=== PATIENT | female | born 1950 | race Caucasian/White ===

== ENCOUNTER 2016-06-11 02:19 | Inpatient (IN) | payer MEDICARE, OTHER ==
[~2016-06-11] VITALS: Ht 157.5 cm; Wt 81.4 kg
[2016-06-11] VITALS (9 sets, daily range): BP systolic 120–163; BP diastolic 50–69; PULSE 53–68; RESP 18–20; Ht 157.5 cm; Wt 81.4 kg
[~2016-06-11 02:19] MED LIST: AMLO-147 PO; ASPI-664 PO; BENA40TA54 PO; CILO100T PO; CLOP75TA27 PO; DOXA2TAB52 PO; FAMO20TA PO; GLIM4TAB PO; LOSA50TA6 PO; MAGNESIUM WITH ZINC PO; METF-382 PO; OMEGA Q PLUS PO; PROP40SO PO; TRAMADOL HCL PO
[2016-06-11] MEDS ORDERED: IPRATROPIUM (NEB) 0.5 MG/2.5 ML AMP INH STA (02:25)
[2016-06-11] MEDS ORDERED: ALBUTEROL 0.5% (NEB) 2.5 MG/0.5 ML AMP INH STA (02:25)
--- NOTE | 2016-06-11 02:42 | RADRPT ---
PROCEDURE: CHEST - 1 VIEW CLINICAL INDICATION: 66-year-old female with shortness of breath. TECHNIQUE: A single frontal AP semi-erect view of the chest was performed portably. The images we re reviewed on a PACS workstation. COMPARISON: Chest x-ray November 21, 2012. FINDINGS: The cardiomediastinal silhouette is mildly enlarged. The thoracic aortic arch is mildly calcified. There is [id number] pulmonary vascular congestion. There is a shallow inspiration. There is mild bibasilar subsegmental atelectasis. There is no evidence for focal consolidation. There is n o evidence for pneumothorax. Surgical clips are seen within the right axillary region. The osseous structures are intact. IMPRESSION: 1. Cardiomegaly. 2. Calcified thoracic aortic arch. 3. Pulmonary vascular congestion. 4. Shallow inspiration with mild bibasilar subsegmental atelectasis. 5. Surgical clips within the right axillary region presumably from lymph node dissection. .Mazin Hudson MD, MD Date Time Electronically viewed and signed by .Mazin Hudson MD, on 06/11/2016 02:42 .M/
[2016-06-11 03:05] LABS: ADD SCAN DIFF NO
[2016-06-11 03:18] LABS: ALBUMIN 4.3 g/dl (3.3-4.9)
[2016-06-11 03:19] LABS: CHLORIDE 102 mmol/L (97-110); POTASSIUM 4.8 mmol/L (3.5-5.1); SODIUM 141 mmol/L (135-144)
[2016-06-11 03:21] LABS: ALBUMIN/GLOBULIN RATIO 1.04; ANION GAP 19 (8-16); ASPARTATE AMINO TRANSFERASE 31 IU/L (15-46); BILIRUBIN,INDIRECT 0.1 mg/dl (0-1.1); BILIRUBIN,TOTAL 0.1 mg/dl (0.2-1.3); CARBON DIOXIDE 25 mmol/L (21-31); CREATININE 0.58 mg/dl (0.44-1.00); INR 1.02; PROTIME 13.4 Sec (12.2-14.2); TOTAL PROTEIN 8.4 g/dl (6.1-8.1)
[2016-06-11 03:22] LABS: ALANINE AMINOTRANSFERASE 30 IU/L (13-69); ALKALINE PHOSPHATASE 98 IU/L (42-121); BLOOD UREA NITROGEN 19 mg/dl (7-20); CALCIUM 10.7 mg/dl (8.4-10.2); GLUCOSE 177 mg/dl (70-220); PARTIAL THROMBOPLASTIN TIME 36.8 Sec (25.0-35.0)
[2016-06-11 03:25] LABS: BASOPHILS % 0.3 % (0.0-2.0); EOSINOPHILS # 0.2 10^3/ul (0.0-0.5); EOSINOPHILS % 1.7 % (0.0-7.0); HEMATOCRIT 29.7 % (37.0-47.0); HEMOGLOBIN 9.3 g/dl (12.0-16.0); LYMPHOCYTES # 1.4 10^3/ul (0.8-2.9); LYMPHOCYTES % 14.5 % (15.0-51.0); MEAN CORPUSCULAR HEMOGLOBIN 25.8 pg (29.0-33.0); MEAN CORPUSCULAR HGB CONC 31.3 g/dl (32.0-37.0); MEAN CORPUSCULAR VOLUME 82.5 fl (82.0-101.0); MEAN PLATELET VOLUME 10.7 fl (7.4-10.4); MONOCYTE # 0.8 10^3/ul (0.3-0.9); MONOCYTES % 8.4 % (0.0-11.0); NEUTROPHIL # 7.2 10^3/ul (1.6-7.5); NEUTROPHILS % 74.7 % (39.0-77.0); PLATELET COUNT 295 10^3/UL (140-415); RED CELL DISTRIBUTION WIDTH 17.7 % (11.5-14.5); WHITE BLOOD COUNT 9.6 10^3/ul (4.8-10.8)
[2016-06-11 03:29] LABS: B-TYPE NATRIURETIC PEPTIDE 421 PG/ML (0-125)
[2016-06-11] MEDS ORDERED: FUROSEMIDE 40 MG INJ IV ONE (03:30)
[2016-06-11 03:44] LABS: TROPONIN-I < 0.012 ng/ml (0.00-0.12)
--- NOTE | 2016-06-11 03:59 | ERA ---
ER Documentation Chief Complaint Date/Time DATE: 06/11/16 TIME: 03:57 Chief Complaint CP, SOB X 1 HR. HPI This is a 58-year-old female, with chest pain shortness of breath for the past hour. Chest pain is mild to moderate intensity, pressure-like with no exacerbating or remitting factors. Denies any fevers or chills. Denies any nausea vomiting. Shortness breath is progressively worse over the past 2 days. ROS All systems reviewed and are negative except as per history of present illness. Medications Home Meds Reported Medications [Magnesium With Zinc] No Conflict Check, PO INSTRUCTIONS UNKNOWN. 11/21/12 [[place] Q Plus] No Conflict Check, PO INSTRUCTIONS UNKNOWN. 11/21/12 Cilostazol* (Cilostazol*) 100 Mg Tablet, 100 MG PO BID 11/21/12 Famotidine* (Acid Control*) 20 Mg Tablet, 20 MG PO DAILY 11/21/12 Doxazosin* (CARDURA*) 2 Mg Tablet, 2 MG PO DAILY 11/21/12 Glimepiride* (Glimepiride*) 4 Mg Tablet, 4 MG PO BID 11/21/12 Benazepril Hcl* (Lotensin*) 40 Mg Tablet, 40 MG PO BID 11/21/12 Amlodipine Besylate* (Amlodipine Besylate*) 10 Mg Tablet, 10 MG PO DAILY 11/21/12 Losartan Potassium* (Losartan Potassium*) 50 Mg Tablet, 50 MG PO BID 11/21/12 Propranolol Hcl (Propranolol Hcl) 40 Mg/5 Ml Solution, 40 MG PO BID TAKE 80MG PO BID. 11/21/12 [Tramadol Hcl] No Conflict Check, 50 MG PO BID 11/21/12 Metformin Hcl* (Metformin Hcl*) 500 Mg Tablet, 500 MG PO DAILY 11/21/12 Aspirin* (Aspirin* EC) 81 Mg Tablet.dr, 81 MG PO DAILY 11/21/12 Clopidogrel Bisulfate (Clopidogrel) 75 Mg Tablet, 75 MG PO DAILY 11/21/12 Allergies Allergies: Coded Allergies: No Known Drug Allergies (Verified Allergy, Mild, 07/12/10) PMhx/Soc History of Surgery: Yes (STENTS 2008) Anesthesia Reaction: No Hx Neurological Disorder: No Hx Respiratory Disorders: No Hx Cardiac Disorders: Yes (CAD, HTN, STENTS PLACED) Hx Psychiatric Problems: No Hx Miscellaneous Medical Probl: No Hx Alcohol Use: No Hx Substance Use: No Hx Tobacco Use: No Smoking Status: Never smoker Physical Exam Vitals Vital Signs Date Time Temp Pulse Resp B/P Pulse Ox O2 Delivery O2 Flow Rate FiO2 06/11/16 03:41 79 19 171/66 93 Room Air 06/11/16 02:36 Nasal Cannula 2 06/11/16 02:20 97.2 79 18 184/78 90 Physical Exam Const: [] Head: Atraumatic Eyes: Normal Conjunctiva ENT: Normal External Ears, Nose and Mouth. Neck: Full range of motion..~ No meningismus. Resp: Clear to auscultation bilaterally Cardio: Regular rate and rhythm, no murmurs Abd: Soft, non tender, non distended. Normal bowel sounds Skin: No petechiae or rashes Back: No midline or flank tenderness Ext: No cyanosis, or edema Neur: Awake and alert Psych: Normal Mood and Affect Result Diagram: 06/11/16 0245 06/11/16 0245 Results 24 hrs Laboratory Tests Test 06/11/16 02:45 Activated Partial Thromboplast Time 36.8Sec Alanine Aminotransferase (ALT/SGPT) 30IU/L Albumin 4.3g/dl Albumin/Globulin Ratio 1.04 Alkaline Phosphatase 98IU/L Anion Gap 19 Aspartate Amino Transf (AST/SGOT) 31IU/L B-Type Natriuretic Peptide 421PG/ML Basophils # 0.010^3/ul Basophils % 0.3% Blood Urea Nitrogen 19mg/dl Calcium Level 10.7mg/dl Carbon Dioxide Level 25mmol/L Chloride Level 102mmol/L Creatinine 0.58mg/dl Direct Bilirubin 0.00mg/dl Eosinophils # 0.210^3/ul Eosinophils % 1.7% Globulin 4.10g/dl Glucose Level 177mg/dl Hematocrit 29.7% Hemoglobin 9.3g/dl INR International Normalized Ratio 1.02 Indirect Bilirubin 0.1mg/dl Lymphocytes # 1.410^3/ul Lymphocytes % 14.5% Mean Corpuscular Hemoglobin 25.8pg Mean Corpuscular Hemoglobin Concent 31.3g/dl Mean Corpuscular Volume 82.5fl Mean Platelet Volume 10.7fl Monocytes # 0.810^3/ul Monocytes % 8.4% Neutrophils # 7.210^3/ul Neutrophils % 74.7% Nucleated Red Blood Cells # 0.010^3/ul Nucleated Red Blood Cells % 0.0/100WBC Platelet Count 83648^3/UL Potassium Level 4.8mmol/L Prothrombin Time 13.4Sec Prothrombin Time Ratio 1.0 Red Blood Count 3.6010^6/ul Red Cell Distribution Width 17.7% Sodium Level 141mmol/L Total Bilirubin 0.1mg/dl Total Protein 8.4g/dl Troponin I < 0.012ng/ml White Blood Count 9.610^3/ul Current Medications Medications (Trade) Dose Ordered Sig/Heather Route PRN Reason Start Time Stop Time Status Last Admin Dose Admin Albuterol (Proventil 0.5% (Neb)) 5 mg ONCE STAT INH 06/11/16 02:25 06/11/16 02:27 DC Ipratropium [place] (Atrovent 0.02% (Neb)) 0.5 mg ONCE STAT INH 06/11/16 02:25 06/11/16 02:27 DC Furosemide (Lasix) 40 mg ONCE ONCE IV 06/11/16 03:30 06/11/16 03:31 DC Procedures/MDM EKG: Rate/Rhythm: [Normal Sinus Rhythm] QRS, ST, T-waves: [No changes consistent w/ acute ischemia] Impression: [No evidence of ischemia or arrhythmia] Chest X-ray 1V Interpreted by me: Soft Tissue: No acute abnormalities Bones: No acute abnormalities Mediastinum/Cardiac Silhouette/Lungs: Increased interstitial fluid markings. Impression: CHF Patient's heart failure symptoms is concerning for acute decompensation and will require inpatient workup and monitoring. Further w/u for ischemia, arrhythmia, PE or dissection will be deferred to the inpatient team. Accepting Care Team: Current data and ongoing care discussed. Time: 4 AM Primary Provider: Gwen Consulting: [XOXOXO] Outstanding Data: none Departure Diagnosis: Primary Impression: Chest pain Qualified Code: I20.9 - Ischemic chest pain Additional Impression: CHF (congestive heart failure) Qualified Code: I50.9 - Congestive heart failure, unspecified congestive heart failure chronicity, unspecified congestive heart failure type Condition: Serious WES [place] Jun 11, 2016 03:58
[2016-06-11 08:59] LABS: ALBUMIN 3.9 g/dl (3.3-4.9); POTASSIUM 4.1 mmol/L (3.5-5.1)
[2016-06-11] MEDS ORDERED: GLUCOSE GEL 15 GRAM TUBE PO PRN ×2 (09:00)
[2016-06-11] MEDS ORDERED: CLOPIDOGREL 75 MG TAB PO SCH (09:00)
[2016-06-11] MEDS ORDERED: DOXAZOSIN 2 MG TAB PO SCH (09:00)
[2016-06-11] MEDS ORDERED: FAMOTIDINE 20 MG TAB PO SCH (09:00)
[2016-06-11] MEDS ORDERED: GLUCOSE GEL 15 GRAM TUBE BUCCAL PRN (09:00)
[2016-06-11] MEDS ORDERED: LOSARTAN 50 MG TAB PO SCH (09:00)
[2016-06-11] MEDS ORDERED: GLUCAGON 1 MG INJ IM PRN (09:00)
[2016-06-11] MEDS ORDERED: PROPRANOLOL HCL 40 MG PO SCH (09:00)
[2016-06-11] MEDS ORDERED: DEXTROSE 50% 50 ML SYRINGE IV PRN ×2 (09:00)
[2016-06-11 09:02] LABS: ALBUMIN/GLOBULIN RATIO 1.02; BILIRUBIN,INDIRECT 0.1 mg/dl (0-1.1); BILIRUBIN,TOTAL 0.1 mg/dl (0.2-1.3); CALCIUM 10.1 mg/dl (8.4-10.2); CREATININE 0.6 mg/dl (0.44-1.00); TOTAL PROTEIN 7.7 g/dl (6.1-8.1)
[2016-06-11] MEDS: ASPIRIN (EC) 81 MG TAB PO SCH (09:15)
[2016-06-11] MEDS: AMLODIPINE 10 MG TAB PO SCH (09:16)
[2016-06-11] MEDS: BENAZEPRIL 40 MG TAB PO SCH ×2 (10:16→20:44)
[2016-06-11] MEDS: INSULIN ASPART [NOVOLOG] 3 ML PEN SC SCH ×3 (10:17→20:45)
[2016-06-11] MEDS: PROPRANOLOL 40 MG TAB PO SCH ×2 (10:18→20:43)
[2016-06-11] MEDS ORDERED: OMEP40CA6 PO (10:43)
[2016-06-11] MEDS ORDERED: APR50 PO (10:43)
[2016-06-11] MEDS ORDERED: REPA2TAB8 PO (10:43)
[2016-06-11] MEDS ORDERED: EXEM25TA PO (10:43)
[2016-06-11] MEDS: FUROSEMIDE 40 MG INJ IV SCH (17:42)
--- NOTE | 2016-06-11 19:33 | HP ---
DATE OF ADMISSION: 06/11/2016 CHIEF COMPLAINT: Shortness of breath and chest tightness for 3 days. HISTORY OF PRESENT ILLNESS: The patient is a 66-year-old female with history of coronary artery dis ease, diabetes, hypertension, diastolic congestive heart failure who has had some episodic edema per iodically the last few weeks, some dyspnea on exertion, especially walking any distance, is worse th e last few days with some occasional chest tightness, brief in duration. Shortness of breath was wo rse lying down. The patient denies any radiation of her chest pain, dizziness. She has had some mi ld cough which is nonproductive. No fever, chills or night sweats. Weight has been stable. Denies any acute dietary changes. Was brought into the ER overnight, diagnosed with CHF and admitted for further management. PAST MEDICAL HISTORY: Coronary artery disease, diastolic congestive heart failure, diabetes, hypert ension, hyperlipidemia, anemia, breast cancer. OPERATIONS: Right breast, , cataracts, varicose veins, toe, tonsils, right knee, PTCA with stent. MEDICATIONS: 1. Lantus 26 units q.a.m., 23 units q.p.m. 2. Hydralazine 25 mg 1-1/2 tablets b.i.d. 3. Aspirin 81 mg daily. 4. Benazepril 40 mg b.i.d. 5. Repaglinide 2 mg q.a.c. 6. Propranolol 80 mg p.o. b.i.d. 7. Norvasc 10 mg daily. 8. Exemestane 25 mg daily. ALLERGIES: STATINS. SOCIAL HISTORY: The patient denies any tobacco or alcohol use. She is a retired [employer] secretary. She is . FAMILY HISTORY: Father in his 90s from pneumonia. Mother at 49 from pneumonia. Four son s, one with diabetes. Daughter who is alive and well. REVIEW OF SYSTEMS: GENERAL: The patient denies any fever, chills, night sweats or other general complaints. HEENT: The patient denies any headache, congestion, rhinorrhea, sore throat or other HEENT complain ts. RESPIRATORY: As noted in HPI. CARDIOVASCULAR: As noted in HPI. GASTROINTESTINAL: The patient denies any abdominal pain, nausea, vomiting, bright red blood per rec alea, melena or other GI symptoms. GENITOURINARY: The patient denies any dysuria, frequency, other symptoms. NEUROLOGIC: She denies any numbness, tingling, weakness, other focal neurologic symptoms. PHYSICAL EXAMINATION: VITAL SIGNS: Temperature 99, pulse 56, blood pressure 144/50, respirations 20, pulse oximetry 96%. GENERAL APPEARANCE: This is a well-developed, well-nourished female in no acute distress. She appe ars nontoxic. HEENT: Normocephalic, atraumatic. Sclerae anicteric. Oropharynx is clear. NECK: Supple. No adenopathy. No elevated JVP, although hepatojugular reflux is present. No bruit s. LUNGS: There are bibasilar crackles. CARDIAC: Regular rate and rhythm. ABDOMEN: Bowel sounds are present. Abdomen soft, nontender, nondistended. EXTREMITIES: Without cyanosis or clubbing. There is mild edema bilaterally. NEUROLOGIC: The patient is alert and oriented x3 with no focal neurologic findings. DATA: EKG shows sinus rhythm at 81 with no hyperacute changes. Chest x-ray: Cardiomegaly, pulmonary vascular congestion. White count 9.6, hemoglobin 9.3, platelets 295. Sodium 141, potassium 4.8, chloride 102, bicarbonat e 25, BUN 19, creatinine 0.58, glucose 177, calcium 10.7, AST 31, ALT 30, alkaline phosphatase 98. Troponin less than 0.012. BNP 421. INR 1.02, PTT 36.8. IMPRESSION: 1. Acute exacerbation of congestive heart failure. 2. Diabetes. 3. Coronary artery disease. 4. Chest pain. Initial troponin negative. 5. Anemia. PLAN: Admit to telemetry. Cardiology consultation. Diuresis with careful monitoring of I's and O' s, daily weight. Monitor electrolytes. Anemia workup. Check a hemoglobin A1c. Resume outpatient medications except hold oral hypoglycemics. Sliding scale of NovoLog, mild algorithm in addition to Lantus. Dictated By: NEGAR WHEATLEY/ABNER Conf#: [id number] DID#: [id number]
[2016-06-11] MEDS: INSULIN GLARGINE [LANtus] 3 ML PEN SC SCH (20:47)
[2016-06-12] VITALS (13 sets, daily range): BP systolic 118–192; BP diastolic 64–79; PULSE 58–70; RESP 16–20
[2016-06-12] MEDS: ACCUCHECK XX SCH (02:00)
[2016-06-12] MEDS: FUROSEMIDE 40 MG INJ IV SCH ×2 (05:33→17:15)
[2016-06-12] MEDS: INSULIN GLARGINE [LANtus] 3 ML PEN SC SCH ×2 (07:47→20:22)
[2016-06-12] MEDS: INSULIN ASPART [NOVOLOG] 3 ML PEN SC SCH ×4 (07:47→20:24)
[2016-06-12 08:10] LABS: ADD SCAN DIFF NO
[2016-06-12 08:12] LABS: BASOPHILS % 0.2 % (0.0-2.0); EOSINOPHILS # 0.2 10^3/ul (0.0-0.5); EOSINOPHILS % 2.4 % (0.0-7.0); HEMATOCRIT 29.3 % (37.0-47.0); HEMOGLOBIN 9.1 g/dl (12.0-16.0); LYMPHOCYTES # 1.7 10^3/ul (0.8-2.9); LYMPHOCYTES % 20.6 % (15.0-51.0); MEAN CORPUSCULAR HEMOGLOBIN 25.8 pg (29.0-33.0); MEAN CORPUSCULAR HGB CONC 31.1 g/dl (32.0-37.0); MEAN PLATELET VOLUME 10.2 fl (7.4-10.4); MONOCYTE # 0.9 10^3/ul (0.3-0.9); MONOCYTES % 11.6 % (0.0-11.0); NEUTROPHIL # 5.2 10^3/ul (1.6-7.5); NEUTROPHILS % 64.8 % (39.0-77.0); PLATELET COUNT 275 10^3/UL (140-415); RED BLOOD COUNT 3.53 10^6/ul (4.20-5.40); RED CELL DISTRIBUTION WIDTH 17.7 % (11.5-14.5); WHITE BLOOD COUNT 8.1 10^3/ul (4.8-10.8)
[2016-06-12] MEDS: ENOXAPARIN 40 MG/0.4 ML SYG SC SCH (08:20)
[2016-06-12] MEDS: ASPIRIN (EC) 81 MG TAB PO SCH (08:21)
[2016-06-12] MEDS: PROPRANOLOL 40 MG TAB PO SCH ×2 (08:21→20:17)
[2016-06-12] MEDS: EXEMESTANE 25 MG TAB PO SCH (08:24)
[2016-06-12] MEDS: AMLODIPINE 10 MG TAB PO SCH (08:24)
[2016-06-12] MEDS: BENAZEPRIL 40 MG TAB PO SCH ×2 (08:24→20:17)
[2016-06-12 08:33] LABS: IRON 41 ug/dl (35-150)
[2016-06-12 08:41] LABS: POTASSIUM 4.5 mmol/L (3.5-5.1)
[2016-06-12 08:42] LABS: TOTAL IRON BINDING CAPACITY 410 ug/dl (241-421)
[2016-06-12 08:43] LABS: CREATININE 0.75 mg/dl (0.44-1.00)
[2016-06-12 08:44] LABS: CALCIUM 10.4 mg/dl (8.4-10.2); MAGNESIUM 1.3 mg/dl (1.7-2.5)
[2016-06-12 08:45] LABS: CHOL/HDL RATIO 5.7 RATIO
[2016-06-12 09:14] LABS: THYROID STIMULATING HORMONE 3.23 MIU/L (0.465-4.680)
--- NOTE | 2016-06-12 10:53 | PN ---
Date/Time of Note Date/Time of Note DATE: 06/12/16 TIME: 10:48 Assessment/Plan VTE Prophylaxis VTE Prophylaxis Intervention: LMWH Lines/Catheters IV [facility]ter Type (from [email or web address] Saline Lock Urinary Cath still in place: No Assessment/Plan Assessment/Plan acute CHF exacerbation DM HTN hyperlipidemia- statin intolerant Plan: cont diuresis await cards eval Mg supplement cont current rx monitor labs Subjective 24 Hr Interval Summary Free Text/Dictation Pt feeling better. Breathing improved. No cp, wheeze. Not seen by cardiology yet. Exam/Review of Systems Vital Signs Vitals Vital Signs Date Time Temp Pulse Resp B/P Pulse Ox O2 Delivery O2 Flow Rate FiO2 06/12/16 08:34 64 06/12/16 07:50 98.2 17 152/69 96 Nasal Cannula 2.0 Intake and Output 06/11/16 06/11/16 06/12/16 15:00 23:00 07:00 Intake Total 1120 ml Balance 1120 ml Exam gen- nad, nontoxic lungs- decreased basilar crackles heart- regular rate and rhythm ext- trace edema. Results Result Diagram: 06/12/16 0754 06/12/16 0754 Results 24 hrs Laboratory Tests Test 06/11/16 11:24 06/11/16 13:00 06/11/16 17:26 06/11/16 18:10 Bedside Glucose 197 215 Troponin I < 0.012 < 0.012 Test 06/11/16 20:06 06/12/16 02:02 06/12/16 07:45 06/12/16 07:54 Bedside Glucose 290 H 286 H 208 Anion Gap 19 H Basophils # 0.0 Basophils % 0.2 Blood Urea Nitrogen 25 H Calcium Level 10.4 H Carbon Dioxide Level 26 Chloride Level 101 Cholesterol Level 184 Cholesterol/HDL Ratio 5.7 Creatinine 0.75 Eosinophils # 0.2 Eosinophils % 2.4 Folate Glucose Level 195 HDL Cholesterol 32 L Hematocrit 29.3 L Hemoglobin 9.1 L Hemoglobin A1c 6.8 H Iron Level 41 LDL Cholesterol, Calculated 119 Lymphocytes # 1.7 Lymphocytes % 20.6 Magnesium Level 1.3 L Mean Corpuscular Hemoglobin 25.8 L Mean Corpuscular Hemoglobin Concent 31.1 L Mean Corpuscular Volume 83.0 Mean Platelet Volume 10.2 Monocytes # 0.9 Monocytes % 11.6 H Neutrophils # 5.2 Neutrophils % 64.8 Nucleated Red Blood Cells # 0.0 Nucleated Red Blood Cells % 0.0 Percent Iron Saturation 10 L Platelet Count 275 Potassium Level 4.5 Red Blood Count 3.53 L Red Cell Distribution Width 17.7 H Sodium Level 141 Thyroid Stimulating Hormone (TSH) 3.230 Total Iron Binding Capacity 410 Triglycerides Level 166 H Vitamin B12 Level 701 White Blood Count 8.1 Medications Medications Current Medications Amlodipine Besylate (Norvasc) 10 mg DAILY PO Last administered on 06/12/16 08: 24; Admin Dose 10 MG; Start 06/11/16 at 09:00 Aspirin (Halfprin) 81 mg DAILY PO Last administered on 06/12/16 08:21; Admin Dose 81 MG; Start 06/11/16 at 09:00 Benazepril HCl (Lotensin) 40 mg BID PO Last administered on 06/12/16 08:24; Admin Dose 40 MG; Start 06/11/16 at 09:30 Diagnostic Test (Pha) (Accucheck) 1 ea 02 XX ; Start 06/12/16 at 02:00 Propranolol HCl (Inderal) 40 mg BID PO Last administered on 06/12/16 08:21; Admin Dose 40 MG; Start 06/11/16 at 09:30 Miscellaneous Information 1 ea NOTE XX ; Start 06/11/16 at 09:00 Glucose (Glutose) 15 gm Q15M PRN PO DECREASED GLUCOSE; Start 06/11/16 at 09:00 Glucose (Glutose) 22.5 gm Q15M PRN PO DECREASED GLUCOSE; Start 06/11/16 at 09: 00 Dextrose (D50w Syringe) 25 ml Q15M PRN IV DECREASED GLUCOSE; Start 06/11/16 at 09:00 Dextrose (D50w Syringe) 50 ml Q15M PRN IV DECREASED GLUCOSE; Start 06/11/16 at 09:00 Glucagon (Glucagen) 1 mg Q15M PRN IM DECREASED GLUCOSE; Start 06/11/16 at 09:00 Glucose (Glutose) 15 gm Q15M PRN BUCCAL DECREASED GLUCOSE; Start 06/11/16 at 09 :00 Hydralazine HCl (Apresoline) 37.5 mg BID PO Last administered on 06/12/16 08:22 ; Admin Dose 37.5 MG; Start 06/11/16 at 21:00 Insulin Glargine (Lantus) 20 unit BID@08,20 SC Last administered on 06/12/16 07 :47; Admin Dose 20 UNIT; Start 06/11/16 at 20:00 Exemestane (Aromasin) 25 mg DAILY PO Last administered on 06/12/16 08:24; Admin Dose 25 MG; Start 06/12/16 at 09:00 Enoxaparin Sodium (Lovenox) 40 mg DAILY SC Last administered on 06/12/16 08:20 ; Admin Dose 40 MG; Start 06/12/16 at 09:00 NEGAR HOPSON MD Jun 12, 2016 10:53
[2016-06-12] MEDS ORDERED: MAGNESIUM SULFATE 2 GM/50 ML 50 ML IVPB ONE (11:00)
[2016-06-12] MEDS ORDERED: PANTOPRAZOLE (EC) 40 MG TAB PO ONE (11:00)
[2016-06-12] MEDS ORDERED: NITROGLYCERIN (SL) 0.4 MG TAB SL PRN (17:00)
--- NOTE | 2016-06-12 17:08 | CONS ---
DATE OF ADMISSION: 06/11/2016 DATE OF CONSULTATION: 06/12/2016 REASON FOR CONSULTATION: Congestive heart failure and chest pain, assess for acute coronary syndrom e. REQUESTING PHYSICIAN: Dr. Hopson. HISTORY OF PRESENT ILLNESS: Ms. Owens is a very pleasant 66-year-old female well known to myself as a primary office patient, with a history of congestive heart failure with preserved left ventricu lar ejection fraction by most recent echo, coronary artery disease, diabetes mellitus, hypertension, who had recently presented to my office with complaints of substernal chest pain, shortness of saranya th. Patient was to be scheduled for an outpatient stress test. Patient subsequently returned home and stated that she had worsening shortness of breath, increase in lower extremity edema, and recurr ent episodes of chest pain. Given these findings, the patient presented here to [facility]. Initially upon arrival, temperature 97.2, blood pressure 184/78, pulse 79, respiratory r ate 18, saturating 98%. The patient's labs revealed a white count 9.6, hemoglobin 9.3, platelet cou nt 295, sodium 141, potassium 4.8, creatinine 0.58, BUN 19, ALT 30, AST 31. BNP of 421. Troponin n egative. INR of 1.0. Patient underwent a chest x-ray revealing cardiomegaly, calcified thoracic ao rtic arch, pulmonary vascular congestion, shallow inspiration with mild bibasilar subsegmental atele ctasis. EKG revealed sinus rhythm at a rate of 81 with normal axis, anteroseptal Q's, borderline an terior R-wave progression, and occasional PVC. Patient was subsequently admitted to the floor and s mary kay admit to the floor, has been placed on hydralazine, although at decreased dose, benazepril, and propranolol, and has had Losartan held. Patient has been discontinued on Norvasc and been treated with Lasix 40 mg IV b.i.d. Patient at this time denies ongoing chest pain and states shortness of b reath is improving. PAST MEDICAL HISTORY: As above in HPI. MEDICATIONS CURRENTLY IN HOSPITAL: 1. Protonix 40 mg daily. 2. Aromasin 20 mg daily. 3. Lovenox 40 subq daily. 5. Hydralazine 37.5 mg p.o. b.i.d. 6. Lantus 20 units subcu b.i.d. 7. Lasix 40 mg IV b.i.d. 8. Benazepril 40 mg b.i.d. 9. Propranolol 40 mg p.o. b.i.d. 10. Norvasc 10 mg daily. 11. Aspirin 81 mg daily. ALLERGIES: NO KNOWN DRUG ALLERGIES. SOCIAL HISTORY: No tobacco, ETOH, or illicit drug use. FAMILY HISTORY: No history of sudden cardiac or early CAD. REVIEW OF SYSTEMS: As above in HPI. CONSTITUTIONAL: No fevers, chills. PULMONARY: Shortness of breath. CARDIOVASCULAR: Positive chest pain. GASTROINTESTINAL: No vomiting. GENITOURINARY: No hematuria. MUSCULOSKELETAL: Degenerative joint disease. PSYCHIATRIC: Patient denies depression. NEUROLOGIC: No documented history of CVA. ENDOCRINE: Diabetes mellitus. PHYSICAL EXAMINATION: VITAL SIGNS: Temperature of 98.7, blood pressure 118/73, pulse 65, respiratory rate 18, saturating 96% on 2 liters. GENERAL: The patient is alert, awake, complaining of mild shortness of breath, intermittent chest p ain. NECK: JVP approximately 9 cm water. CHEST: Fair movement throughout with mildly decreased breath sounds at bases bilaterally. HEART: Regular rate and rhythm, normal S1 and S2. 1/6 systolic murmur, nondisplaced PMI. ABDOMEN: Positive bowel sounds, soft. EXTREMITIES: No edema, 1+ pulses bilaterally, posterior tibial. LABORATORIES: Most recently from today, sodium 141, potassium 4.1, creatinine 0.6, BUN 17. Troponi n negative x3, although the last 2 were drawn 4 hours apart. White blood count 8.1, hemoglobin 9.1, platelet count 275. INR 1.0. IMAGING STUDIES: As above in HPI. No further imaging studies for my review at this time. ECG: As above in HPI. No further EKGs for my review at this time. IMPRESSION: 1. Chest pain, assess for acute coronary syndrome with negative troponins x2. 2. Abnormal electrocardiogram with anteroseptal Q's. Assess for acute coronary syndrome. 3. Congestive heart failure by chest x-ray, and diastolic acute on chronic by most recent echo. 4. Hypertension, under reasonable control. 5. Diabetes mellitus. 6. History of dyslipidemia. 7. History of peripheral arterial disease. 8. History of prior stent. RECOMMENDATIONS: 1. At this time, would maintain the patient on telemetry monitoring to follow rhythm and rate contr ol closely. 2. Would send an additional troponin to ensure the patient's chest pain is not due to an acute florentin nary syndrome such as acute myocardial infarction. 3. Continue the patient's current hydralazine, benazepril, propranolol, and Norvasc for control of blood pressure and heart rate, and will give patient sublingual nitroglycerin for recurrent episodes of chest pain. 4. Continue the patient's Lasix diuresis at this time following strict I's and O's to grade diuresi s closely. 5. Would check a repeat of the patient's 2D echo to reassess the patient's ejection fraction, wall motion, to rule out any major valve abnormalities. Additionally, given the patient's chest pain and multiple cardiac risk factors, history of stent, will place patient in for cardiac stress test to t [facility] place in the morning to assure that the patient's chest pain was not due to cardiac ischemia. 6. Continue adjustment of patient's hypoglycemic medications. 7. Additionally, check a fasting lipid panel for general risk stratification and initiate lipid-low ering medication as necessary. Thank you for allowing me to take part in the care of this patient. I will continue to follow very closely with you, with further recommendations to be made as the patient progresses through her [facility] clinical course. Dictated By: SARA FISH/ABNER Conf#: [id number] DID#: [id number] CC: NEGAR HOPSON MD;*EndCC*
[2016-06-13] VITALS (12 sets, daily range): BP systolic 130–148; BP diastolic 57–68; PULSE 52–72; RESP 16–20
[2016-06-13] MEDS: ACCUCHECK XX SCH (02:00)
[2016-06-13] MEDS: FUROSEMIDE 40 MG INJ IV SCH ×2 (05:56→17:19)
[2016-06-13] MEDS: PANTOPRAZOLE (EC) 40 MG TAB PO SCH (05:56)
[2016-06-13 06:40] LABS: ADD SCAN DIFF NO
[2016-06-13 06:48] LABS: BASOPHILS % 0.4 % (0.0-2.0); EOSINOPHILS # 0.2 10^3/ul (0.0-0.5); EOSINOPHILS % 2.6 % (0.0-7.0); HEMATOCRIT 28.5 % (37.0-47.0); HEMOGLOBIN 8.9 g/dl (12.0-16.0); LYMPHOCYTES # 1.4 10^3/ul (0.8-2.9); LYMPHOCYTES % 17.5 % (15.0-51.0); MEAN CORPUSCULAR HEMOGLOBIN 25.9 pg (29.0-33.0); MEAN CORPUSCULAR HGB CONC 31.2 g/dl (32.0-37.0); MEAN CORPUSCULAR VOLUME 82.8 fl (82.0-101.0); MEAN PLATELET VOLUME 10.4 fl (7.4-10.4); MONOCYTE # 0.9 10^3/ul (0.3-0.9); MONOCYTES % 11.4 % (0.0-11.0); NEUTROPHIL # 5.3 10^3/ul (1.6-7.5); NEUTROPHILS % 67.8 % (39.0-77.0); PLATELET COUNT 256 10^3/UL (140-415); RED BLOOD COUNT 3.44 10^6/ul (4.20-5.40); RED CELL DISTRIBUTION WIDTH 17.2 % (11.5-14.5); WHITE BLOOD COUNT 7.8 10^3/ul (4.8-10.8)
[2016-06-13 06:59] LABS: POTASSIUM 4.1 mmol/L (3.5-5.1)
[2016-06-13 07:01] LABS: CREATININE 0.92 mg/dl (0.44-1.00)
[2016-06-13 07:02] LABS: CALCIUM 10.3 mg/dl (8.4-10.2); MAGNESIUM 1.5 mg/dl (1.7-2.5)
[2016-06-13] MEDS: INSULIN ASPART [NOVOLOG] 3 ML PEN SC SCH ×4 (08:00→20:34)
[2016-06-13] MEDS: INSULIN GLARGINE [LANtus] 3 ML PEN SC SCH ×2 (09:27→20:34)
[2016-06-13] MEDS ORDERED: REGADENOSON 0.4 MG/5 ML SYG ONE (12:11)
--- NOTE | 2016-06-13 12:12 | CONS ---
Date/Time of Note Date/Time of Note DATE: 06/13/16 TIME: 12:07 Assessment/Plan Assessment/Plan Chief Complaint/Hosp Course IMPRESSION: 1. Chest pain, assess for acute coronary syndrome with negative troponins x3 2. Abnormal electrocardiogram with anteroseptal Q's. Assess for acute coronary syndrome. 3. Congestive heart failure by chest x-ray, and diastolic acute on chronic by most recent echo.-improved volume status 4. Hypertension, under reasonable control. 5. Diabetes mellitus. 6. History of dyslipidemia-LDL 119 7. History of peripheral arterial disease. 8. History of prior stent. Recc: -Tele -serial ecg's -Continue lasix diuresis gentle and follow volume status closely -Continue propranolol/brnazepril/hydralazine/norvasc -Continue asa -Will f/u echo today -Lexiscan stress test today -Consider initiation of statin for elavted LDL Problems: Consultation Date/Type/Reason Admit Date/Time Jun 11, 2016 at 04:07 Initial Consult Date 06/12/2016 Type of Consultation: Cardiology Reason for Consultation sob/CHF Referring Provider: NEGAR HOPSON MD Exam/Review of Systems Vital Signs Vitals Vital Signs Date Time Temp Pulse Resp B/P Pulse Ox O2 Delivery O2 Flow Rate FiO2 06/13/16 11:47 98.0 74 20 147/64 100 06/13/16 07:35 Nasal Cannula 2.0 Intake and Output 06/12/16 06/12/16 06/13/16 15:00 23:00 07:00 Intake Total 400 ml 400 ml Balance 400 ml 400 ml Exam Review of Systems: CONSTITUTIONAL: No fevers, chills. PULMONARY: No sob CARDIOVASCULAR: No chest pain/palpitations GASTROINTESTINAL: No nausea/vomiting. GENITOURINARY: No hematuria/dysuria. MUSCULOSKELETAL: No myagias/arthalgias. PSYCHIATRIC: The patient denies depression. NEUROLOGIC: No weakness Constitutional: alert, oriented Psych: no complaints Head: normocephalic ENMT: mucosa pink and moist Neck: jvd (9 cm water), supple Respiratory: diminished breath sounds (at bases/B) Cardiovascular: regular rate and rhythm Gastrointestinal: non-tender, soft Musculoskeletal: muscle tone (norrmal) Extremities: edema (trace/B) Neurological: other (No focal deficits) Results Result Diagram: 06/13/16 0544 06/13/16 0544 Results 24 hrs Laboratory Tests Test 06/12/16 15:50 06/12/16 17:37 06/12/16 20:07 06/13/16 01:50 Troponin I < 0.012 Bedside Glucose 261 H 236 H 163 Test 06/13/16 05:44 06/13/16 08:05 06/13/16 11:18 Anion Gap 16 Basophils # 0.0 Basophils % 0.4 Blood Urea Nitrogen 30 H Calcium Level 10.3 H Carbon Dioxide Level 29 Chloride Level 101 Creatinine 0.92 Eosinophils # 0.2 Eosinophils % 2.6 Glucose Level 221 H Hematocrit 28.5 L Hemoglobin 8.9 L Lymphocytes # 1.4 Lymphocytes % 17.5 Magnesium Level 1.5 L Mean Corpuscular Hemoglobin 25.9 L Mean Corpuscular Hemoglobin Concent 31.2 L Mean Corpuscular Volume 82.8 Mean Platelet Volume 10.4 Monocytes # 0.9 Monocytes % 11.4 H Neutrophils # 5.3 Neutrophils % 67.8 Nucleated Red Blood Cells # 0.0 Nucleated Red Blood Cells % 0.0 Platelet Count 256 Potassium Level 4.1 Red Blood Count 3.44 L Red Cell Distribution Width 17.2 H Sodium Level 142 White Blood Count 7.8 Bedside Glucose 246 H 218 Medications Medications Current Medications Amlodipine Besylate (Norvasc) 10 mg DAILY PO Last administered on 06/12/16 08: 24; Admin Dose 10 MG; Start 06/11/16 at 09:00 Aspirin (Halfprin) 81 mg DAILY PO Last administered on 06/12/16 08:21; Admin Dose 81 MG; Start 06/11/16 at 09:00 Benazepril HCl (Lotensin) 40 mg BID PO Last administered on 06/12/16 20:17; Admin Dose 40 MG; Start 06/11/16 at 09:30 Diagnostic Test (Pha) (Accucheck) 1 ea 02 XX ; Start 06/12/16 at 02:00 Propranolol HCl (Inderal) 40 mg BID PO Last administered on 06/12/16 20:17; Admin Dose 40 MG; Start 06/11/16 at 09:30 Miscellaneous Information 1 ea NOTE XX ; Start 06/11/16 at 09:00 Glucose (Glutose) 15 gm Q15M PRN PO DECREASED GLUCOSE; Start 06/11/16 at 09:00 Glucose (Glutose) 22.5 gm Q15M PRN PO DECREASED GLUCOSE; Start 06/11/16 at 09: 00 Dextrose (D50w Syringe) 25 ml Q15M PRN IV DECREASED GLUCOSE; Start 06/11/16 at 09:00 Dextrose (D50w Syringe) 50 ml Q15M PRN IV DECREASED GLUCOSE; Start 06/11/16 at 09:00 Glucagon (Glucagen) 1 mg Q15M PRN IM DECREASED GLUCOSE; Start 06/11/16 at 09:00 Glucose (Glutose) 15 gm Q15M PRN BUCCAL DECREASED GLUCOSE; Start 06/11/16 at 09 :00 Hydralazine HCl (Apresoline) 37.5 mg BID PO Last administered on 06/12/16 20:18 ; Admin Dose 37.5 MG; Start 06/11/16 at 21:00 Insulin Glargine (Lantus) 20 unit BID@08,20 SC Last administered on 06/13/16 09 :27; Admin Dose 20 UNIT; Start 06/11/16 at 20:00 Exemestane (Aromasin) 25 mg DAILY PO Last administered on 06/12/16 08:24; Admin Dose 25 MG; Start 06/12/16 at 09:00 Enoxaparin Sodium (Lovenox) 40 mg DAILY SC Last administered on 06/12/16 08:20 ; Admin Dose 40 MG; Start 06/12/16 at 09:00 Pantoprazole (Protonix Tab) 40 mg DAILY@06 PO Last administered on 06/13/16 05: 56; Admin Dose 40 MG; Start 06/13/16 at 06:00 Nitroglycerin (Nitroglycerin (Sl Tab) 0.4 Mg) 1 tab Q5M PRN SL ANGINA; Start at 17:00 SARA SAWYER Jun 13, 2016 12:12
--- NOTE | 2016-06-13 13:35 | CARRPT ---
DATE OF PROCEDURE: 06/13/2016 REASON FOR STRESS TESTING: Shortness of breath, abnormal electrocardiogram, congestive heart failur e. REQUESTING PHYSICIAN: Dr. Hidalgo. BASELINE VITAL SIGNS/ELECTROCARDIOGRAM: Pulse of 77, blood pressure 195/77. Electrocardiogram reve als sinus rhythm, rate of 77, first degree AV block with lateral T-wave inversion. PROCEDURE: The patient underwent standard Lexiscan infusion protocol over 10 seconds followed by ra diolabeled tracer. Patient's test was stopped due to completion of protocol. Maximal achieved bloo d pressure during the test 156/67. Max achieved heart rate during the test 98. ELECTROCARDIOGRAM FINDINGS: The patient did not develop any new Lexiscan-induced ST or T-wave tinsley es from baseline abnormalities. No documented PVCs. SYMPTOMS: Patient had slight shortness of breath during stress test that resolved in recovery. No chest pain. IMPRESSION: 1. No Lexiscan-induced ST or T-wave changes from baseline abnormalities or diagnostic cardiac ische morgan. 2. Complaints of shortness of breath during stress test resolved in recovery. No chest pain during stress testing. 3. No documented premature ventricular contractions during stress testing. 4. Report nuclear image to follow in separate dictation. Dictated By: SARA FISH/ABNER Conf#: [id number] DID#: [id number] CC: NEGAR HIDALGO MD;*EndCC*
[2016-06-13] MEDS: ASPIRIN (EC) 81 MG TAB PO SCH (14:15)
[2016-06-13] MEDS: EXEMESTANE 25 MG TAB PO SCH (14:16)
[2016-06-13] MEDS: ENOXAPARIN 40 MG/0.4 ML SYG SC SCH (14:17)
[2016-06-13] MEDS: BENAZEPRIL 40 MG TAB PO SCH ×2 (14:19→20:31)
[2016-06-13] MEDS: PROPRANOLOL 40 MG TAB PO SCH ×2 (14:19→20:31)
[2016-06-13] MEDS: AMLODIPINE 10 MG TAB PO SCH (14:20)
--- NOTE | 2016-06-13 14:32 | RADRPT ---
PROCEDURE: Lexiscan myocardial perfusion study CLINICAL INDICATION: 66 -year-old patient complaining of chest pain. TECHNIQUE: Lexiscan 0.4 mg intravenously separate acquisition gated myocardial perfusion SPECT usi ng Tc 99m Myoview 30.3 mCi intravenously at stress and Tc-99m Myoview, 9 point. mCi intravenously at rest was performed using the rest/stress sequence. Poststress Myoview SPECT images were obtained i n the supine position. COMPARISON: No prior studies. FINDINGS: Perfusion images reveal no evidence of perfusion defects. Lexiscan post stress gated SPECT images demonstrate no wall motion abnormalities. IMPRESSION: 1. No evidence of perfusion defects. 2. No wall motion abnormalities. 3. The left ventricle ejection fraction at stress is 67%. A call report was made to Dr. Phillips at 02:30 p.m. on June 13, 2016. RPTAT: HH .Laya Alcantar MD, Date Time Electronically viewed and signed by .Laya Alcantar MD, on 06/13/2016 14:32 .L/
--- NOTE | 2016-06-13 16:19 | PN ---
Date/Time of Note Date/Time of Note DATE: 06/13/16 TIME: 16:15 Assessment/Plan VTE Prophylaxis VTE Prophylaxis Intervention: LMWH Lines/Catheters IV [facility] Saline Lock Urinary Cath still in place: No Assessment/Plan Assessment/Plan chf dm anemia hypomagnesemia Plan: cont diuresis replace mag increase lantus, sliding scale to mod monitor labs Subjective 24 Hr Interval Summary Free Text/Dictation Cardiology consult appreciated. Pt had nuclear stress test today. Feeling better, no cp, sob. Ambulating some without probs. Discussed possibility of transfusion and pt does not want transfusion. Exam/Review of Systems Vital Signs Vitals Vital Signs Date Time Temp Pulse Resp B/P Pulse Ox O2 Delivery O2 Flow Rate FiO2 06/13/16 15:53 97.7 71 20 130/60 94 06/13/16 14:12 Nasal Cannula 2.0 Intake and Output 06/12/16 06/12/16 06/13/16 14:59 22:59 06:59 Intake Total 400 ml 400 ml Balance 400 ml 400 ml Exam gen- nad, nontoxic lungs- cta heart- regular rate and rhythm abd- +bs, soft, nontender. ext- tr edema. Results Result Diagram: 06/13/16 0544 06/13/16 0544 Results 24 hrs Laboratory Tests Test 06/12/16 17:37 06/12/16 20:07 06/13/16 01:50 06/13/16 05:44 Bedside Glucose 261 H 236 H 163 Anion Gap 16 Basophils # 0.0 Basophils % 0.4 Blood Urea Nitrogen 30 H Calcium Level 10.3 H Carbon Dioxide Level 29 Chloride Level 101 Creatinine 0.92 Eosinophils # 0.2 Eosinophils % 2.6 Glucose Level 221 H Hematocrit 28.5 L Hemoglobin 8.9 L Lymphocytes # 1.4 Lymphocytes % 17.5 Magnesium Level 1.5 L Mean Corpuscular Hemoglobin 25.9 L Mean Corpuscular Hemoglobin Concent 31.2 L Mean Corpuscular Volume 82.8 Mean Platelet Volume 10.4 Monocytes # 0.9 Monocytes % 11.4 H Neutrophils # 5.3 Neutrophils % 67.8 Nucleated Red Blood Cells # 0.0 Nucleated Red Blood Cells % 0.0 Platelet Count 256 Potassium Level 4.1 Red Blood Count 3.44 L Red Cell Distribution Width 17.2 H Sodium Level 142 White Blood Count 7.8 Test 06/13/16 08:05 06/13/16 11:18 Bedside Glucose 246 H 218 Medications Medications Current Medications Amlodipine Besylate (Norvasc) 10 mg DAILY PO Last administered on 06/13/16 14: 20; Admin Dose 10 MG; Start 06/11/16 at 09:00 Aspirin (Halfprin) 81 mg DAILY PO Last administered on 06/13/16 14:15; Admin Dose 81 MG; Start 06/11/16 at 09:00 Benazepril HCl (Lotensin) 40 mg BID PO Last administered on 06/13/16 14:19; Admin Dose 40 MG; Start 06/11/16 at 09:30 Diagnostic Test (Pha) (Accucheck) 1 ea 02 XX ; Start 06/12/16 at 02:00 Propranolol HCl (Inderal) 40 mg BID PO Last administered on 06/13/16 14:19; Admin Dose 40 MG; Start 06/11/16 at 09:30 Miscellaneous Information 1 ea NOTE XX ; Start 06/11/16 at 09:00 Glucose (Glutose) 15 gm Q15M PRN PO DECREASED GLUCOSE; Start 06/11/16 at 09:00 Glucose (Glutose) 22.5 gm Q15M PRN PO DECREASED GLUCOSE; Start 06/11/16 at 09: 00 Dextrose (D50w Syringe) 25 ml Q15M PRN IV DECREASED GLUCOSE; Start 06/11/16 at 09:00 Dextrose (D50w Syringe) 50 ml Q15M PRN IV DECREASED GLUCOSE; Start 06/11/16 at 09:00 Glucagon (Glucagen) 1 mg Q15M PRN IM DECREASED GLUCOSE; Start 06/11/16 at 09:00 Glucose (Glutose) 15 gm Q15M PRN BUCCAL DECREASED GLUCOSE; Start 06/11/16 at 09 :00 Hydralazine HCl (Apresoline) 37.5 mg BID PO Last administered on 06/12/16 20:18 ; Admin Dose 37.5 MG; Start 06/11/16 at 21:00 Insulin Glargine (Lantus) 20 unit BID@08,20 SC Last administered on 06/13/16 09 :27; Admin Dose 20 UNIT; Start 06/11/16 at 20:00 Exemestane (Aromasin) 25 mg DAILY PO Last administered on 06/13/16 14:16; Admin Dose 25 MG; Start 06/12/16 at 09:00 Enoxaparin Sodium (Lovenox) 40 mg DAILY SC Last administered on 06/13/16 14:17 ; Admin Dose 40 MG; Start 06/12/16 at 09:00 Pantoprazole (Protonix Tab) 40 mg DAILY@06 PO Last administered on 06/13/16 05: 56; Admin Dose 40 MG; Start 06/13/16 at 06:00 Nitroglycerin (Nitroglycerin (Sl Tab) 0.4 Mg) 1 tab Q5M PRN SL ANGINA; Start at 17:00 NEGAR HOPSON MD Jun 13, 2016 16:19
[2016-06-13] MEDS ORDERED: MAGNESIUM SULFATE 3 GM in SOD CHLORIDE 0.9% 100 ML IVPB ONE (16:30)
--- NOTE | 2016-06-13 21:02 | RADRPT ---
Echocardiogram Report Patient Name: JADE HELM Gender: Female Date: 1950 Study Date: 13-Jun-2016 End Touching Machine Operator: Azeem Anna [facility] Location: 55 Ref. Physician: SARA SAWYER Quality: Good Procedures: Transthoracic echocardiogram with complete 2D, M-Mode, and doppler examination. Indications: Congestive Heart Failure. 2D/M Mode Doppler Measurement Value Normal Ranges Measurement Value Normal Ranges LVIDd 2D 4.6 3.5 - 5.6 cm AV Peak Reddy 1.7 m/sec LVIDs 2D 2.8 2.1 - 4.1 cm AV Peak PG 11.7 mmHg LVPWd 2D 1.0 0.6 - 1.1 cm LVOT Peak Reddy 0.9 m/sec IVSd 2D 1.0 0.6 - 1.1 cm LVOT Peak PG 3.3 mmHg AoR Diam 2D 2.8 2.0 - 3.7 cm MV E Peak Reddy 1.1 m/sec EDV 2D 99.5 cm3 MV A Peak Reddy 1.0 m/sec ESV 2D 23.1 cm3 MV E/A 1.1 LA Dimen 2D 4.1 2.3 - 4.0 cm MV Decel Time 214 msec MV Decel Garland 5 MV E/A 1.1 Findings Left Ventricle: Ejection fraction is visually estimated at 55 %. Tissue Doppler/Mitral Doppler indices are consistent with pseudonormalization with mildly elevated left atrial pressure (Stage II diastolic dysfunction). Right Ventricle: Normal right ventricular size. Normal right ventricular systolic function. Left Atrium: There is mild enlargement of left atrium. Right Atrium: The right atrium is normal in size. Mitral Valve: Mitral valve leaflets appear mildly thickened. Mild mitral valve regurgitation. Aortic Valve: Aortic sclerosis without stenosis. Aortic cusps appear moderately calcified. Trace aortic valve regurgitation. Tricuspid Valve: Normal appearance and function of the tricuspid valve with trace physiologic regurgitation. Pulmonic Valve: Normal pulmonic valve appearance. Pericardium: Normal pericardium with no significant pericardial effusion. Aorta: Normal aortic root. IVC: Normal size and normal respiratory collapse consistent with normal right atrial pressure. Conclusions 1.Ejection fraction is visually estimated at 55 %. Tissue Doppler/Mitral Doppler indices are consistent with pseudonormalization with mildly elevated left atrial pressure (Stage II diastolic dysfunction). 2.There is mild enlargement of left atrium. 3.Mitral valve leaflets appear mildly thickened. Mild mitral valve regurgitation. 4.Aortic sclerosis without stenosis. Aortic cusps appear moderately calcified. Trace aortic valve regurgitation. 5.Normal appearance and function of the tricuspid valve with trace physiologic regurgitation. Electronically Signed By: Sara Sawyer 13-Jun-2016 21:01:39 -0800 Patient Name: JADE HELM Study Date: 13-Jun-2016 [id number]
[2016-06-14] VITALS (10 sets, daily range): BP systolic 119–138; BP diastolic 56–62; PULSE 51–68; RESP 16–19
[2016-06-14] MEDS: ACCUCHECK XX SCH (02:00)
[2016-06-14] MEDS: FUROSEMIDE 40 MG INJ IV SCH (05:59)
[2016-06-14] MEDS: PANTOPRAZOLE (EC) 40 MG TAB PO SCH (05:59)
[2016-06-14 06:58] LABS: ADD SCAN DIFF NO
[2016-06-14 07:09] LABS: BASOPHILS % 0.4 % (0.0-2.0); EOSINOPHILS # 0.2 10^3/ul (0.0-0.5); EOSINOPHILS % 2.7 % (0.0-7.0); HEMATOCRIT 30.6 % (37.0-47.0); HEMOGLOBIN 9.6 g/dl (12.0-16.0); LYMPHOCYTES # 1.6 10^3/ul (0.8-2.9); MEAN CORPUSCULAR HEMOGLOBIN 25.7 pg (29.0-33.0); MEAN CORPUSCULAR HGB CONC 31.4 g/dl (32.0-37.0); MEAN CORPUSCULAR VOLUME 81.8 fl (82.0-101.0); MONOCYTES % 11.9 % (0.0-11.0); NEUTROPHIL # 5.3 10^3/ul (1.6-7.5); NEUTROPHILS % 64.8 % (39.0-77.0); PLATELET COUNT 282 10^3/UL (140-415); RED BLOOD COUNT 3.74 10^6/ul (4.20-5.40); WHITE BLOOD COUNT 8.2 10^3/ul (4.8-10.8)
[2016-06-14 07:10] LABS: POTASSIUM 4.1 mmol/L (3.5-5.1)
[2016-06-14 07:13] LABS: CREATININE 0.96 mg/dl (0.44-1.00)
[2016-06-14 07:14] LABS: CALCIUM 10.5 mg/dl (8.4-10.2)
[2016-06-14] MEDS: INSULIN GLARGINE [LANtus] 3 ML PEN SC SCH (08:12)
[2016-06-14] MEDS: INSULIN ASPART [NOVOLOG] 3 ML PEN SC SCH ×3 (08:13→17:50)
[2016-06-14] MEDS: ENOXAPARIN 40 MG/0.4 ML SYG SC SCH (08:18)
[2016-06-14] MEDS: EXEMESTANE 25 MG TAB PO SCH (08:18)
[2016-06-14] MEDS: PROPRANOLOL 40 MG TAB PO SCH (08:19)
[2016-06-14] MEDS: BENAZEPRIL 40 MG TAB PO SCH (08:19)
[2016-06-14] MEDS: ASPIRIN (EC) 81 MG TAB PO SCH (08:19)
[2016-06-14] MEDS: AMLODIPINE 10 MG TAB PO SCH (08:20)
--- NOTE | 2016-06-14 13:08 | CONS ---
Date/Time of Note Date/Time of Note DATE: 06/14/16 TIME: 13:01 Assessment/Plan Assessment/Plan Chief Complaint/Hosp Course IMPRESSION: 1. Chest pain, assess for acute coronary syndrome with negative troponins x3, Lexiscan negative for ischemia this admit with NL EF/Echo with NL EF /DD 2. Abnormal electrocardiogram with anteroseptal Q's. Assess for acute coronary syndrome. 3. Congestive heart failure by chest x-ray, and diastolic acute on chronic by most recent echo.-improved volume status 4. Hypertension, under reasonable control. 5. Diabetes mellitus. 6. History of dyslipidemia-LDL 119 7. History of peripheral arterial disease. 8. History of prior stent. Recc: -Tele -serial ecg's -Continue lasix diuresis gentle and follow volume status closely with probable transition to PO lasix today -Continue propranolol/benazepril/hydralazine/norvasc -Continue asa and resume baseline plavix as tolerated -Consider initiation of statin for elevated LDL -D/C planning if asymptomatic with outpatient f/u 2-3 weeks. Problems: Consultation Date/Type/Reason Admit Date/Time Jun 13, 2016 at 14:48 Initial Consult Date 06/12/2016 Type of Consultation: Cardiology Reason for Consultation Chest pain Referring Provider: NEGAR HOPSON MD Exam/Review of Systems Vital Signs Vitals Vital Signs Date Time Temp Pulse Resp B/P Pulse Ox O2 Delivery O2 Flow Rate FiO2 06/14/16 12:39 64 06/14/16 11:39 98.1 18 119/56 95 06/14/16 07:40 Nasal Cannula 2.0 Intake and Output 06/13/16 06/13/16 06/14/16 15:00 23:00 07:00 Intake Total 400 ml 586 ml Balance 400 ml 586 ml Exam Review of Systems: CONSTITUTIONAL: No fevers, chills. PULMONARY: No sob CARDIOVASCULAR: No chest pain/palpitations GASTROINTESTINAL: No nausea/vomiting. GENITOURINARY: No hematuria/dysuria. MUSCULOSKELETAL: No myagias/arthalgias. PSYCHIATRIC: The patient denies depression. NEUROLOGIC: No weakness Constitutional: alert, oriented Psych: no complaints Head: normocephalic ENMT: mucosa pink and moist Neck: jvd (9 cm water), supple Respiratory: diminished breath sounds (at bases/B) Cardiovascular: regular rate and rhythm Gastrointestinal: non-tender, soft Musculoskeletal: muscle tone (normal) Extremities: edema (none) Neurological: other (No focal deficits) Results Result Diagram: 06/14/16 0645 06/14/16 0645 Results 24 hrs Laboratory Tests Test 06/13/16 17:32 06/13/16 20:23 06/14/16 02:22 06/14/16 06:45 Bedside Glucose 372 H 309 H 160 Anion Gap 14 Basophils # 0.0 Basophils % 0.4 Blood Urea Nitrogen 39 H Calcium Level 10.5 H Carbon Dioxide Level 31 Chloride Level 100 Creatinine 0.96 Eosinophils # 0.2 Eosinophils % 2.7 Glucose Level 245 H Hematocrit 30.6 L Hemoglobin 9.6 L Lymphocytes # 1.6 Lymphocytes % 20.0 Magnesium Level 2.0 Mean Corpuscular Hemoglobin 25.7 L Mean Corpuscular Hemoglobin Concent 31.4 L Mean Corpuscular Volume 81.8 L Mean Platelet Volume 10.0 Monocytes # 1.0 H Monocytes % 11.9 H Neutrophils # 5.3 Neutrophils % 64.8 Nucleated Red Blood Cells # 0.0 Nucleated Red Blood Cells % 0.0 Platelet Count 282 Potassium Level 4.1 Red Blood Count 3.74 L Red Cell Distribution Width 17.0 H Sodium Level 141 White Blood Count 8.2 Test 06/14/16 07:32 06/14/16 12:11 06/14/16 12:43 Bedside Glucose 280 H 294 H Lab Scanned Report REFERENCE LAB Medications Medications Current Medications Amlodipine Besylate (Norvasc) 10 mg DAILY PO Last administered on 06/14/16 08: 20; Admin Dose 10 MG; Start 06/11/16 at 09:00 Aspirin (Halfprin) 81 mg DAILY PO Last administered on 06/14/16 08:19; Admin Dose 81 MG; Start 06/11/16 at 09:00 Benazepril HCl (Lotensin) 40 mg BID PO Last administered on 06/14/16 08:19; Admin Dose 40 MG; Start 06/11/16 at 09:30 Diagnostic Test (Pha) (Accucheck) 1 ea 02 XX ; Start 06/12/16 at 02:00 Propranolol HCl (Inderal) 40 mg BID PO Last administered on 06/14/16 08:19; Admin Dose 40 MG; Start 06/11/16 at 09:30 Miscellaneous Information 1 ea NOTE XX ; Start 06/11/16 at 09:00 Glucose (Glutose) 15 gm Q15M PRN PO DECREASED GLUCOSE; Start 06/11/16 at 09:00 Glucose (Glutose) 22.5 gm Q15M PRN PO DECREASED GLUCOSE; Start 06/11/16 at 09: 00 Dextrose (D50w Syringe) 25 ml Q15M PRN IV DECREASED GLUCOSE; Start 06/11/16 at 09:00 Dextrose (D50w Syringe) 50 ml Q15M PRN IV DECREASED GLUCOSE; Start 06/11/16 at 09:00 Glucagon (Glucagen) 1 mg Q15M PRN IM DECREASED GLUCOSE; Start 06/11/16 at 09:00 Glucose (Glutose) 15 gm Q15M PRN BUCCAL DECREASED GLUCOSE; Start 06/11/16 at 09 :00 Hydralazine HCl (Apresoline) 37.5 mg BID PO Last administered on 06/14/16 08:15 ; Admin Dose 37.5 MG; Start 06/11/16 at 21:00 Exemestane (Aromasin) 25 mg DAILY PO Last administered on 06/14/16 08:18; Admin Dose 25 MG; Start 06/12/16 at 09:00 Enoxaparin Sodium (Lovenox) 40 mg DAILY SC Last administered on 06/14/16 08:18 ; Admin Dose 40 MG; Start 06/12/16 at 09:00 Pantoprazole (Protonix Tab) 40 mg DAILY@06 PO Last administered on 06/14/16 05: 59; Admin Dose 40 MG; Start 06/13/16 at 06:00 Nitroglycerin (Nitroglycerin (Sl Tab) 0.4 Mg) 1 tab Q5M PRN SL ANGINA; Start at 17:00 Insulin Glargine (Lantus) 22 unit BID@08,20 SC Last administered on 06/14/16 08 :12; Admin Dose 22 UNIT; Start 06/13/16 at 20:00 SARA SAWYER Jun 14, 2016 13:08
--- NOTE | 2016-06-14 13:39 | RADRPT ---
Vent Rate: 71 bpm RR Interval: 0 msec IN Interval: 244 msec QRS Duration: 112 msec QT Interval: 384 msec QTC Interval: 417 msec P-R-T [place]: 43 - 11 - 48 degrees Sinus rhythm with 1st degree AV block Incomplete left bundle branch block Borderline ECG Electronically Signed By: Neil Dia [id number]
--- NOTE | 2016-06-14 14:22 | PN ---
Date/Time of Note Date/Time of Note DATE: 06/14/16 TIME: 14:17 Assessment/Plan VTE Prophylaxis VTE Prophylaxis Intervention: LMWH Lines/Catheters IV Catheter Type (from Nrsg): Peripheral IV Urinary Cath still in place: No Assessment/Plan Assessment/Plan acute on chronic diastolic chf chest pain- neg troponins, lexiscan nuclear stress test neg ischemia DM HTN anemia hyperlipidemia- statin intolerance Plan: d/c home meds- resume home meds except d/c metformin, add lasix 40mg bid diet- 1800cal ada, low sodium f/u with me next week, Dr. Phillips 2-3wks, Dr. Avila as scheduled next week Subjective 24 Hr Interval Summary Free Text/Dictation Pt feeling better, anxious to go home. No cp, sob. Ambulating without probs. No bleeding. Exam/Review of Systems Vital Signs Vitals Vital Signs Date Time Temp Pulse Resp B/P Pulse Ox O2 Delivery O2 Flow Rate FiO2 06/14/16 12:39 64 06/14/16 11:39 98.1 18 119/56 95 06/14/16 07:40 Nasal Cannula 2.0 Intake and Output 06/13/16 06/13/16 06/14/16 15:00 23:00 07:00 Intake Total 400 ml 586 ml Balance 400 ml 586 ml Exam gen- nad, nontoxic. lungs- cta heart- regular rate and rhythm abd- +bs, soft, nontender ext- trace edema Results Result Diagram: 06/14/16 0645 06/14/16 0645 Results 24 hrs Laboratory Tests Test 06/13/16 17:32 06/13/16 20:23 06/14/16 02:22 06/14/16 06:45 Bedside Glucose 372 H 309 H 160 Anion Gap 14 Basophils # 0.0 Basophils % 0.4 Blood Urea Nitrogen 39 H Calcium Level 10.5 H Carbon Dioxide Level 31 Chloride Level 100 Creatinine 0.96 Eosinophils # 0.2 Eosinophils % 2.7 Glucose Level 245 H Hematocrit 30.6 L Hemoglobin 9.6 L Lymphocytes # 1.6 Lymphocytes % 20.0 Magnesium Level 2.0 Mean Corpuscular Hemoglobin 25.7 L Mean Corpuscular Hemoglobin Concent 31.4 L Mean Corpuscular Volume 81.8 L Mean Platelet Volume 10.0 Monocytes # 1.0 H Monocytes % 11.9 H Neutrophils # 5.3 Neutrophils % 64.8 Nucleated Red Blood Cells # 0.0 Nucleated Red Blood Cells % 0.0 Platelet Count 282 Potassium Level 4.1 Red Blood Count 3.74 L Red Cell Distribution Width 17.0 H Sodium Level 141 White Blood Count 8.2 Test 06/14/16 07:32 06/14/16 12:11 06/14/16 12:43 Bedside Glucose 280 H 294 H Lab Scanned Report REFERENCE LAB Medications Medications Current Medications Amlodipine Besylate (Norvasc) 10 mg DAILY PO Last administered on 06/14/16 08: 20; Admin Dose 10 MG; Start 06/11/16 at 09:00 Aspirin (Halfprin) 81 mg DAILY PO Last administered on 06/14/16 08:19; Admin Dose 81 MG; Start 06/11/16 at 09:00 Benazepril HCl (Lotensin) 40 mg BID PO Last administered on 06/14/16 08:19; Admin Dose 40 MG; Start 06/11/16 at 09:30 Diagnostic Test (Pha) (Accucheck) 1 ea 02 XX ; Start 06/12/16 at 02:00 Propranolol HCl (Inderal) 40 mg BID PO Last administered on 06/14/16 08:19; Admin Dose 40 MG; Start 06/11/16 at 09:30 Miscellaneous Information 1 ea NOTE XX ; Start 06/11/16 at 09:00 Glucose (Glutose) 15 gm Q15M PRN PO DECREASED GLUCOSE; Start 06/11/16 at 09:00 Glucose (Glutose) 22.5 gm Q15M PRN PO DECREASED GLUCOSE; Start 06/11/16 at 09: 00 Dextrose (D50w Syringe) 25 ml Q15M PRN IV DECREASED GLUCOSE; Start 06/11/16 at 09:00 Dextrose (D50w Syringe) 50 ml Q15M PRN IV DECREASED GLUCOSE; Start 06/11/16 at 09:00 Glucagon (Glucagen) 1 mg Q15M PRN IM DECREASED GLUCOSE; Start 06/11/16 at 09:00 Glucose (Glutose) 15 gm Q15M PRN BUCCAL DECREASED GLUCOSE; Start 06/11/16 at 09 :00 Hydralazine HCl (Apresoline) 37.5 mg BID PO Last administered on 06/14/16 08:15 ; Admin Dose 37.5 MG; Start 06/11/16 at 21:00 Exemestane (Aromasin) 25 mg DAILY PO Last administered on 06/14/16 08:18; Admin Dose 25 MG; Start 06/12/16 at 09:00 Enoxaparin Sodium (Lovenox) 40 mg DAILY SC Last administered on 06/14/16 08:18 ; Admin Dose 40 MG; Start 06/12/16 at 09:00 Pantoprazole (Protonix Tab) 40 mg DAILY@06 PO Last administered on 06/14/16 05: 59; Admin Dose 40 MG; Start 06/13/16 at 06:00 Nitroglycerin (Nitroglycerin (Sl Tab) 0.4 Mg) 1 tab Q5M PRN SL ANGINA; Start at 17:00 Insulin Glargine (Lantus) 22 unit BID@08,20 SC Last administered on 06/14/16 08 :12; Admin Dose 22 UNIT; Start 06/13/16 at 20:00 NEGAR HOPSON MD Jun 14, 2016 14:22
--- NOTE | 2016-06-14 14:25 | PDOCDIS ---
Discharge Instructions CONDITION Patient Condition: Good HOME CARE INSTRUCTIONS: Special Diet: 1800 ada, low sodium FOLLOW UP/APPOINTMENTS Appointments Dr. Hidalgo next week, Dr. Phillips 2-3 wks, Dr. Avila next week as previously scheduled NEGAR HIDALGO MD Jun 14, 2016 14:25
[2016-06-14] MEDS ORDERED: HYDR-3671 PO (14:32)
[2016-06-14] MEDS ORDERED: PROP40TA4 PO (14:32)
[2016-06-14] MEDS ORDERED: FURO40TA4 PO (14:32)
--- NOTE | 2016-06-14 14:32 | RADRPT ---
PROCEDURE: CHEST 1VW CLINICAL INDICATION: Congestive heart failure TECHNIQUE: Single frontal view of the chest was obtained COMPARISON: 06/11/2016 FINDINGS: The cardiac size is normal. Aortic vascular calcifications are demonstrated. There is resolution of previously demonstrated pulmonary vascular congestion. The lungs are clear. No consolidation, effusion, or pneumothorax. Mild degenerative changes of the visualized osseous structures are visualized. IMPRESSION: 1. There is resolution of previously demonstrated pulmonary vascular congestion. 2. Atherosclerosis. RPTAT:PP .Chandu Nolen MD, Date Time Electronically viewed and signed by .Chandu Nolen MD, on 06/14/2016 14:31 .V/
--- NOTE | 2016-06-14 15:13 | DS ---
DATE OF ADMISSION: 06/13/2016 DATE OF DISCHARGE: 06/14/2016 DISCHARGE DIAGNOSES: 1. Acute exacerbation of chronic diastolic congestive heart failure. 2. Chest pain. 3. Diabetes. 4. Hypertension. 5. Hyperlipidemia. PROCEDURES: 2D echocardiogram and Lexiscan nuclear stress test. CONSULTANTS: Cardiology, Dr. Phillips. HISTORY OF PRESENT ILLNESS: The patient is a 66-year-old female with history of coronary artery dis ease and diastolic congestive heart failure, diabetes, hypertension who had some episodic anemia per iodically over the last few weeks, some dyspnea on exertion, especially walking any distance. It go t worse in the last few days prior to admission with occasional chest tightness, brief in duration, shortness of breath was worse lying down. The patient denies any radiation of her chest pain or diz ziness. Had some mild cough which was nonproductive. No fever, chills, or night sweats, weight was stable. The patient denied any acute dietary changes. The patient was brought to the ER. Diagnos is of CHF and admitted for further management. PHYSICAL EXAMINATION ON ADMISSION: VITAL SIGNS: Notable for temperature 99, pulse 56, blood pressure 144/50, respirations 20, pulse ox 96%. GENERAL APPEARANCE: Notable for patient who was in no acute distress. She appears nontoxic. NECK: Supple, no adenopathy, no elevated JVP although hepatojugular reflex is present. CHEST: There are bibasilar crackles. CARDIAC: Regular rate and rhythm. EXTREMITIES: Without cyanosis or clubbing. There was mild edema bilaterally. DATA: On admission notable for an EKG showing sinus rhythm of 81, no hyperacute changes. Chest x-r ay: Cardiomegaly, pulmonary vascular congestion. LABORATORY DATA: White count was 9.6, hemoglobin 9.3, platelets 295. Sodium was 141, potassium 4.8 , BUN was 19, creatinine 0.58, glucose 177. Troponin was less than 0.012. BNP was 421. HOSPITAL COURSE: 1. Acute exacerbation of diastolic congestive heart failure. Patient was admitted to telemetry, be gun on diuresis with IV Lasix with good clinical response. Oxygenation remained good during hospita lization. The patient was seen in cardiology consultation by Dr. Phillips. Echocardiogram was perfo rmed. The patient was ultimately switched over to oral Lasix which was continued as an outpatient. 2. Chest pain. Patient with episodic chest pain. Troponins negative. Patient had echo as noted a abe. Also had Lexiscan nuclear stress test which showed no evidence of ischemia. The patient was continued on her cardiac meds and will have close followup with Dr. Phillips as an outpatient. 3. Diabetes. The patient with elevated diabetes. She is to continue on Lantus and NovoLog. Her o ral hypoglycemics were held. Blood sugar was somewhat fluctuant but remained elevated. She will re sume her outpatient regimen at discharge with the exception of DC metformin due her congestive heart failure. 4. Anemia. The patient showed no evidence of acute bleeding. Hemoglobin remained stable during ho spitalization. She will continue her iron as an outpatient with heme followup. 5. Hypomagnesemia corrected with supplementation. Discharge patient home. DISCHARGE MEDICATIONS: 1. Glimepiride 4 mg b.i.d. 2. Lasix 40 mg b.i.d. 3. Lantus 26 units q.a.m. and 22 units q.p.m. 4. Repaglinide 2 mg before meals. 5. Omeprazole 40 mg daily. 6. Aromasin 25 mg daily. 7. Hydralazine 37.5 mg b.i.d. 8. Benazepril 40 mg b.i.d. 9. Inderal 40 mg b.i.d. 10. Norvasc 10 mg daily. 11. Aspirin 81 mg daily. CONDITION: Good. DISCHARGE DIET: 1800 calorie ADA, low sodium. Follow up with me next week and follow up with Dr. Bay martines in 2 to 3 weeks. Follow up with Dr. Avila next week as previously scheduled. Dictated By: NEGAR WHEATLEY/ABNER Conf#: [id number] DID#: [id number]
[2016-06-14] MEDS ORDERED: FUROSEMIDE 40 MG TAB PO SCH (18:00)
== END 2016-06-14 18:15 | disposition home or self-care (01) | DRG 293 ==
LOC: E/R 02:19 → MS4 04:07 → OBSVTOIN 06-13 14:48
PROVIDERS: ADMIT Internal Medicine; ATTEND Internal Medicine
DX: I50.33 Acute on chronic diastolic (congestive) heart failure (principal); I10 Essential (primary) hypertension; E11.9 Type 2 diabetes mellitus without complications; E78.5 Hyperlipidemia, unspecified; D64.9 Anemia, unspecified; I25.10 Atherosclerotic heart disease of native coronary artery without angina pectoris
CPT/HCPCS: 36415; 71010; 78452; 80048; 80053; 80061; 82607; 82746; 82962; 83036; 83540; 83735; 83880; 84443; 84484; 85025; 85610; 85730; 93005; 93017; 93306; 94664; 96374; G0378; A9500; A9505; J1650; J1815; J1940; J2785; J3475